=== PATIENT | male | born 1965 | race African-American/Black ===

== ENCOUNTER 2020-01-27 13:36 | Inpatient (IN) | payer BC ==
[~2020-01-27] VITALS: Ht 177.8 cm; Wt 94.8 kg
--- NOTE | 2020-01-27 14:10 | NUR ---
PLANT DIRECTOR NOTES RECEIVED PATIENT DIRECT ADMIT FROM [place] [facility] [employer]. PATIENT TRANSFERRED TO BED. ORIENTED PATIENT TO ROOM, UNIT AND CALL LIGHT. ON O2 AT 3L/MIN VIA NC PHOEBE WELL WITHOUT SOB NOTED. ALERT AND ORIENTED X4/ ON TELE MONITORING SR: 6 LFA SL # 18 INTACT AND PATENT. DENIES ANY C/O PAIN NOR DISCOMFORT AT THIS TIME. BED IN LOWEST POSITION, LOCKED. BED ALARM ON. CALL LIGHT WITHIN REACH. ABLE TO VERBALIZE NEEDS. Addendum: 01/27/20 at 1717 by JANETH VIZCARRA RN DISREGARD CHARTING. INCOMPLETE CHARTING.
--- NOTE | 2020-01-27 14:10 | NUR ---
CONVERTIBLE SOFA BEDSPRING TESTER NOTES RECEIVED PATIENT DIRECT ADMIT FROM [place] [facility]. PATIENT TRANSFERRED TO BED. ORIENTED PATIENT TO ROOM, UNIT AND CALL LIGHT. ON O2 AT 3L/MIN VIA NC PHOEBE WELL WITHOUT SOB NOTED. ALERT AND ORIENTED X4. ON TELE MONITORING SR: 65. LEFT AC SL # 22 INTACT AND PATENT. BED IN LOWEST POSITION, LOCKED. BED ALARM ON. CALL LIGHT WITHIN REACH. ABLE TO VERBALIZE NEEDS.
[2020-01-27 14:22] VITALS: BP 132/74
[2020-01-27] MEDS ORDERED: MAG HYDROX/AL HYDROX/SIMETH 30 ML UDC PO PRN (15:00)
[2020-01-27] MEDS ORDERED: Z GUARD REMEDY 2 OZ OINT TP PRN (15:00)
[2020-01-27] MEDS ORDERED: ONDANSETRON HCL/PF 4 MG/2 ML VIAL IVP PRN (15:00)
[2020-01-27] MEDS ORDERED: MAGNESIUM HYDROXIDE 30 ML UDC PO PRN (15:00)
[2020-01-27] MEDS ORDERED: ACETAMINOPHEN 325 MG TABLET PO PRN (15:00)
[2020-01-27] MEDS ORDERED: ZOLPIDEM TARTRATE 5 MG TABLET PO PRN (15:00)
[2020-01-27] MEDS: MORPHINE SULFATE INJ 2 MG/ML DISP.SYRIN IV PRN ×2 (15:08→20:59)
[2020-01-27] MEDS: HYDROCODONE/APAP 5/325MG TABLET PO PRN (18:43)
--- NOTE | 2020-01-27 19:34 | NUR ---
AIR ANALYSIS ENGINEERING TECHNICIAN NOTES PATIENT RESTING COMFORTABLY IN BED. EDUCATED PATIENT TO INFORM NURSE WHEN IN PAIN SO THAT PAIN MED CAN BE GIVEN ACCORDINGLY. REMAIN ON O2 AT 3L/MIN VIA NC PHOEBE WELL WITHOUT S/S OF RESPIRATORY DISTRESS. PER PATIENT, PAIN ON RIGHT SIDE OF CHEST AND TO ABDOMINAL AREA HURTS WHEN HE MOVES DOWNWARDS AND WHEN HE GETS SOB. LEFT AC SL # 22 INTACT AND PATENT. BED IN LOWEST POSITION, LOCKED. BED ALARM ON. CALL LIGHT WITHIN REACH. ABLE TO VERBALIZE NEEDS. IN NO APPARENT DISTRESS.
--- NOTE | 2020-01-27 19:35 | NUR ---
WIND TECHNICIAN OPENING NOTES PATIENT SLEEPING, AWAKENS TO NAME. A/OX4. ON 2L NC; PATIENT DENIES SOB AT THIS TIME; BREATHING IS EVEN AND UNLABORED. PATIENT C/O UPPER RIGHT SIDE PAIN; PER DAY SHIFT RN PRN NORCO 5MG GIVEN AT 1843. TELE MONITOR READING NSR, HEART RATE 73. IV PRESENT ON LEFT AC, SIZE 22, INTACT & PATENT, HEP LOCKED. SAFETY MEASURES IN PLACE AND PATIENT'S NEEDS MET. BED LOCKED, SIDE RAILS X3, HOB ELEVATED, CALL LIGHT WITHIN REACH. WILL CONTINUE TO MONITOR.
[2020-01-27 20:00] VITALS: BP 111/79
[2020-01-27] MEDS: ENOXAPARIN SODIUM 100 MG/ML DISP.SYRIN SQ SCH (20:53)
[2020-01-28] VITALS (7 sets, daily range): BP systolic 115–140; BP diastolic 73–88
[2020-01-28 06:26] LABS: BASOPHILS % (AUTO) 0.3 % (0.0-2.0); EOSINOPHILS % (AUTO) 1.7 % (0.0-6.0); HEMATOCRIT 44 % (39-51); HEMOGLOBIN 14.4 g/dL (13.5-17.5); LYMPHOCYTES # (AUTO) 1.2 /CMM (0.8-4.8); LYMPHOCYTES % (AUTO) 20.9 % (20.0-44.0); MEAN CORPUSCULAR HGB CONC 33 g/dl (31.0-36.0); MEAN CORPUSCULAR VOLUME 94 fL (80-96); MONOCYTES # (AUTO) 0.6 /CMM (0.1-1.30); NEUTROPHILS # (AUTO) 3.7 /CMM (1.8-8.9); NEUTROPHILS % (AUTO) 66.1 % (43.0-81.0); PLATELET COUNT (AUTO) 145 /CMM (150-450); RED BLOOD CELL COUNT(AUTO) 4.69 MIL/uL (4.5-6.0); WHITE BLOOD COUNT (AUTO) 5.6 K/uL (4.3-11.0)
[2020-01-28 06:33] LABS: CALCIUM, SERUM 8.8 mg/dL (8.5-10.1); CREATININE 0.7 mg/dL (0.6-1.3); MAGNESIUM 2.4 mg/dL (1.8-2.4); PHOSPHORUS 3.2 mg/dL (2.5-4.9); POTASSIUM 3.7 mmol/L (3.5-5.1)
[2020-01-28 06:42] LABS: THYROID STIMULATING HORMONE 1.239 uIU/mL (0.358-3.74)
--- NOTE | 2020-01-28 07:30 | NUR ---
MILLED RUBBER TENDER OPENING NOTES RECEIVED PT ON BED, AAOX4, RESPONSIVE TO ALL STIMULI. RESPIRATION EVEN AND NON LABORED WITH NO ACUTE RESPIRATORY DISTRESS. ABD SOFT AND NON DISTENDED, ACTIVE BOWEL SOUNDS, ON BRP, SBA. SKIN WARM TO TOUCH AND DRY, NO REPORTED NEW OPEN SKIN BREAKDOWN. PT C/O PAIN 4/10 ON RIGHT UPPER CHEST. DENIES SOB, ON O2 AT 2LPM, PHOEBE WELL. TELE MONITOR SHOWS SR 72. IV SITE AT LEFT AC @ 22 PATENT IN FLUSHING, NO S/SX OF INFILTRATION. CALL LIGHT WITHIN REACH, BED IN LOW LOCKED POSITION, SRX2 FOR SAFETY, WILL CONTINUE TO MONITOR CARE.
[2020-01-28] MEDS: HYDROCODONE/APAP 5/325MG TABLET PO PRN (07:35)
--- NOTE | 2020-01-28 07:45 | NUR ---
RETAIL ASSISTANT STORE MANAGER CLOSING NOTES PATIENT AWAKE IN BED. A/OX4. ON 2L NC; NO S/S OF ACUTE RESPIRATORY DISTRESS; BREATHING IS EVEN AND UNLABORED. PATIENT C/O RIGHT UPPER SIDE PAIN. TELE MONITOR READING NSR. IV PRESENT ON LEFT AC, SIZE 22, INTACT & PATENT, HEP LOCKED. SAFETY MEASURES IN PLACE AND PATIENT'S NEEDS MET. BED LOCKED, SIDE RAILS X3, HOB ELEVATED, CALL LIGHT WITHIN REACH. ENDORSED TO DAY SHIFT RN PLAN OF CARE.
[2020-01-28] MEDS: ENOXAPARIN SODIUM 100 MG/ML DISP.SYRIN SQ SCH ×2 (08:42→20:16)
--- NOTE | 2020-01-28 19:05 | NUR ---
early learning teacher opening notes received patient in bed awake alert and oriented x4, able to make needs known , respirations even and unlabored with equal rise and fall of chest,tolerating 02 well via nc at this time remains comfortable, denies any discomfort ,no distress present, on tele monitoring sr 81 , iv site to left ac#22 g intact and patent, no redness,no infiltration present, safety precautions rendered, low bed and locked, oriented to call light and kept within reach, all needs attended at this time will continue to monitor and attend to needs.
--- NOTE | 2020-01-28 19:20 | NUR ---
MACHINIST INSTRUCTOR CLOSING NOTES PT AAOX4, ABLE TO MAKE NEEDS KNOWN. NO PRESENCE OF ACUTE RESPIRATORY DISTRESS, ON CONTINUOUS O2, AT 2LPM, PHOEBE WELL, DENIES SOB. PT DENIES PAIN. SKIN REMAIN INTACT. IV SITE PATENT IN FLUSHING AT LAC #22 H/L. TELE MONITOR SHOWS SR 78. ALL CONCERNS ATTENDED. NO DC PLANNING. CALL LIGHT WITHIN REACH. ENDORSED CARE TO NEXT SHIFT.
[2020-01-29 00:20] VITALS: BP 125/78
[2020-01-29 01:21] VITALS: BP 125/78
[2020-01-29 04:00] VITALS: BP 130/70
--- NOTE | 2020-01-29 06:33 | NUR ---
burner technician closing notes patient in bed sleeping, alert and oriented x4, able to make needs known , respirations even and unlabored with equal rise and fall of chest,tolerating 02 well via nc at this time remains comfortable, denies any discomfort ,no distress present, on tele monitoring sr 67 , iv site to left ac#22 g intact and patent, no redness,no infiltration present, safety precautions rendered, low bed and locked, call light kept within reach, all needs attended at this time will continue to monitor and attend to needs and endorse to next shift.
[2020-01-29 07:33] LABS: BASOPHILS % (AUTO) 0.6 % (0.0-2.0); EOSINOPHILS % (AUTO) 2.1 % (0.0-6.0); HEMATOCRIT 46 % (39-51); HEMOGLOBIN 15.1 g/dL (13.5-17.5); LYMPHOCYTES # (AUTO) 1.1 /CMM (0.8-4.8); LYMPHOCYTES % (AUTO) 24.9 % (20.0-44.0); MEAN CORPUSCULAR HGB CONC 33 g/dl (31.0-36.0); MEAN CORPUSCULAR VOLUME 93 fL (80-96); MONOCYTES # (AUTO) 0.5 /CMM (0.1-1.30); MONOCYTES % (AUTO) 11.3 % (2.0-12.0); NEUTROPHILS # (AUTO) 2.8 /CMM (1.8-8.9); NEUTROPHILS % (AUTO) 61.1 % (43.0-81.0); PLATELET COUNT (AUTO) 177 /CMM (150-450); RED BLOOD CELL COUNT(AUTO) 4.94 MIL/uL (4.5-6.0); WHITE BLOOD COUNT (AUTO) 4.6 K/uL (4.3-11.0)
--- NOTE | 2020-01-29 07:55 | NUR ---
RN OPENING NOTE Patient is resting in bed, A/O x4, showing no signs of acute distress or SOB, breathing is even and unlabored, saturating 97% on 2L NC. Patient denies pain or discomfort at this time. IV line in the LAC#22g is clean and intact flushing well. Bed is in lowest position, side rails x3 in upright position, call light is within reach, fall safety and aspiration precautions enforced. Will continue with plan of care.
[2020-01-29 08:00] VITALS: BP 141/79
[2020-01-29 08:12] LABS: THYROID STIMULATING HORMONE 2.039 uIU/mL (0.358-3.74)
[2020-01-29 08:35] LABS: ALANINE AMINOTRANSFERASE 61 U/L (12-78); ALKALINE PHOSPHATASE 48 U/L (46-116); ASPARTATE AMINOTRANSFERASE 28 U/L (15-37); BILIRUBIN,TOTAL 0.4 mg/dL (0.2-1.0); CALCIUM, SERUM 9.2 mg/dL (8.5-10.1); CARBON DIOXIDE 27 mmol/L (21-32); CHLORIDE 102 mmol/L (98-107); CREATININE 0.9 mg/dL (0.6-1.3); GLUCOSE 96 mg/dL (74-106); MAGNESIUM 2.5 mg/dL (1.8-2.4); PHOSPHORUS 3.5 mg/dL (2.5-4.9); POTASSIUM 3.7 mmol/L (3.5-5.1); SODIUM SERUM 140 mmol/L (136-145); TOTAL PROTEIN, SERUM 7.5 g/dL (6.4-8.2); UREA NITROGEN, BLOOD 9 mg/dL (7-18)
[2020-01-29] MEDS: ENOXAPARIN SODIUM 100 MG/ML DISP.SYRIN SQ SCH ×2 (09:11→20:50)
[2020-01-29 16:00] VITALS: BP 110/73
--- NOTE | 2020-01-29 18:45 | NUR ---
RN CLOSING NOTE Patient is resting in bed, A/O x4, showing no signs of acute distress or SOB, breathing is even and unlabored, saturating 97% on 2L NC. Patient denies pain or discomfort at this time. Patient is independent with self-care. IV line in the LAC#22g is clean and intact flushing well. All patient needs met, all due medications given, patient kept clean and dry throughout shift. Bed is in lowest position, side rails x3 in upright position, call light is within reach, fall safety and aspiration precautions enforced. Will endorse to evening or night nurse supervisor for CAIT.
--- NOTE | 2020-01-29 19:10 | NUR ---
RN OPENING NOTE RECEIVED PATIENT IN BED RESTING ALERT ORIENTED X4 ABLE TO MAKE NEEDS KNOWN,ON MED SURG MONITORING,ON 2L OXYGEN VIA NASAL CANNULA,O2:96% IV SITE IS ON LEFT AC INTACT, PATENT, FLUSHED,CONTINENT BOWEL/BLADDER AMBULATORY WITH ASSIST,IMPLEMENT SAFETY MEASURE,BED LOCKED IN LOW POSITION,CALL LIGHT WITHIN REACH,CONTINUE TO MONITOR.
[2020-01-29 20:00] VITALS: BP 121/81
--- NOTE | 2020-01-29 23:30 | NUR ---
RN NOTE PATIENT REMAINS ALERT ORIENTED X4 VERBALLY RESPONSIVE NO SOB NOT ACUTE DISTRESS NOTED ENDORSE MOOK MATTHEWS FOR CONTINUATION OF CARE
--- NOTE | 2020-01-29 23:30 | NUR ---
Patient in bed sleeping comfortably. Patient breathing well on 2L Oxygen via nasal canula. No SOB or acute respiratory distress noted. Noted IV access on left AC, 22 gauge, dressing dry and intact, no redness, or infiltration. Safety precaution is in place, bed is in the lowest level, brakes are on, side rails x2 are up, and call light is within reach. Will continue to monitor.
--- NOTE | 2020-01-29 23:30 | NUR ---
Received report from BYRON Hogan for continuity of care.
[2020-01-30 07:05] LABS: BASOPHILS % (AUTO) 0.3 % (0.0-2.0); EOSINOPHILS % (AUTO) 3.5 % (0.0-6.0); HEMATOCRIT 46 % (39-51); HEMOGLOBIN 15.3 g/dL (13.5-17.5); LYMPHOCYTES # (AUTO) 1.4 /CMM (0.8-4.8); LYMPHOCYTES % (AUTO) 34.5 % (20.0-44.0); MEAN CORPUSCULAR HGB CONC 34 g/dl (31.0-36.0); MEAN CORPUSCULAR VOLUME 92 fL (80-96); MONOCYTES # (AUTO) 0.5 /CMM (0.1-1.30); MONOCYTES % (AUTO) 11.2 % (2.0-12.0); NEUTROPHILS # (AUTO) 2.1 /CMM (1.8-8.9); NEUTROPHILS % (AUTO) 50.5 % (43.0-81.0); PLATELET COUNT (AUTO) 195 /CMM (150-450); RED BLOOD CELL COUNT(AUTO) 4.95 MIL/uL (4.5-6.0); WHITE BLOOD COUNT (AUTO) 4.1 K/uL (4.3-11.0)
--- NOTE | 2020-01-30 07:15 | NUR ---
Patient in bed sleeping comfortably. Patient breathing well. No SOB or acute respiratory distress noted. Safety precaution maintained, bed in lowest level, side rails x2 are up, and call light is within reach. Will endorse to next shift.
--- NOTE | 2020-01-30 07:39 | NUR ---
MS/RN OPENING NOTE RECEIVED PATIENT FROM UTILITY MECHANIC. PATIENT LAYING IN BED, NO ACUTE DISTRESS NOTED. PATIENT ON 2L OF OXYGEN VIA NASSAL CANNULA. NO SOB OF NOTED. BED LOCKED AND IN LOWEST POSITION, CALL LIGHT LIGHT WITHIN REACH. WILL CONTINUE TO MONITOR AND ENSURE SAFETY.
[2020-01-30 07:53] LABS: CALCIUM, SERUM 9.2 mg/dL (8.5-10.1); CREATININE 0.8 mg/dL (0.6-1.3); MAGNESIUM 2.5 mg/dL (1.8-2.4); PHOSPHORUS 3.5 mg/dL (2.5-4.9); POTASSIUM 3.6 mmol/L (3.5-5.1)
[2020-01-30 08:07] VITALS: BP 115/75
[2020-01-30] MEDS ORDERED: APIX5TAB PO (08:44)
--- NOTE | 2020-01-30 08:50 | NUR ---
MS/RN S/B STEFANIA SANTIAGO PATIENT TO BE DISCHARGED TO HOME TODAY WITH PRESCRIPTION FOR ELIQUIS
[2020-01-30] MEDS ORDERED: APIXABAN 5 MG TABLET PO SCH (09:00)
--- NOTE | 2020-01-30 09:52 | NUR ---
MS/FLUE LINING DIPPER DISCHARGE PAPER WORK COMPLETED FLU VACCINATION ORDERED FROM PHARMACY. WILL ADMINISTER PRIOR TO DISCHARGE.
[2020-01-30] MEDS ORDERED: INFLUENZA VACCINE 2020-21 0.5 ML DISP.SYRIN IM ONE (10:00)
--- NOTE | 2020-01-30 11:20 | NUR ---
MS/ELECTRICAL FITTER PATIENT WAS DISCHARGED TO HOME IN STABLE CONDITION. IV HEPLOCK AND NAME BAND REMOVED. ALL PERSONAL BELONGINGS ACCOUNTED FOR AND SIGNED OFF IN BELONGINGS LIST. EDUCATED PATIENT ON ELIQUIS INCLUDING SIDE EFFECTS IE BLOOD IN URINE. INSTRUCTED TO NOTIFY PCP IF ANY SIGNS OF BLEEDING OR COMPLICATIONS OF MEDICATION, IF EXPERIENCING LARGE AMOUNTS OF BLEEDING TO GO TO THE NEAREST ER. EXIT CARE SIGNED BY PATIENT. COPY MADE AND PLACED IN CHART. PROVIDED WITH COPY OF EXIT CARE AND MEDICAL RECORD. INFORMED TO FOLLOW WITH PCP IN 1 WEEK AND RECOMMENDATION OF FOLLOWING UP WITH CT PULMONARY ANGIOGRAM IN 6 MO. PATIENT STATED UNDERSTANDING. ESCORTED TO MAIN LOBBY BY RN. DAUGHTER WAITING FOR TRANSPORT.
[2020-01-31 08:13] LABS: IMMUNOGLOBULIN A, SERUM 285 mg/dL (90-386); IMMUNOGLOBULIN G, SERUM 737 mg/dL (603-1613); IMMUNOGLOBULIN M, SERUM 80 mg/dL (20-172)
[2020-01-31 14:07] LABS: *SPE A/G RATIO 0.9 (0.7-1.7); *SPE ALPHA-1-GLOBULIN 0.3 g/dL (0.0-0.4); *SPE BETA GLOBULIN 1.2 g/dL (0.7-1.3); *SPE GLOBULIN, TOTAL 3.3 g/dL (2.2-3.9); *SPE M-SPIKE Not Observed g/dL (Not Observed); *SPEGAMMA GLOBULIN 0.7 g/dL (0.4-1.8)
[2020-02-01 11:16] LABS: *CARD ANTI-CARDIOLIPIN AB IgA <9 APL U/mL (0-11); *CARD ANTI-CARDIOLIPIN AB IgG <9 GPL U/mL (0-14); *CARD ANTI-CARDIOLIPIN AB IgM <9 MPL U/mL (0-12)
[2020-02-02 12:05] LABS: *FACTOR II, DNA ANALYSIS Negative (.)
[2020-02-02 16:09] LABS: *ANA ANTI-CENTROMERE B AB <0.2 AI (0.0-0.9); *ANA ANTI-DNA(DS) AB, QN <1 IU/mL (0-9); *ANA ANTI-JO-1 <0.2 AI (0.0-0.9); *ANA ANTICHROMATIN ANTIBODY <0.2 AI (0.0-0.9); *ANA RNP ANTIBODIES <0.2 AI (0.0-0.9); *ANA SJOGREN'S ANTI-SS-A <0.2 AI (0.0-0.9); *ANA SJOGREN'S ANTI-SS-B <0.2 AI (0.0-0.9); *ANAANTI-SCLERODERMA-70 AB <0.2 AI (0.0-0.9); *ANASMITH AB <0.2 AI (0.0-0.9)
[2020-02-08 08:11] LABS: *ANTITHROMBIN III AG 71 % (72-124); *THROMBIN TIME 13.4 sec (0.0-23.0); *dRVVT 52.2 sec (0.0-47.0)
== END 2020-01-30 11:15 | disposition home or self-care (01) | DRG 176 ==
LOC: TELE 13:36 → MED 01-29 10:05
PROVIDERS: ADMIT Nurse Practitioner Acute Care; ATTEND Nurse Practitioner Acute Care
DX: I26.94 Multiple subsegmental thrombotic pulmonary emboli without acute cor pulmonale (principal); D68.69 Other thrombophilia; M54.12 Radiculopathy, cervical region; F12.90 Cannabis use, unspecified, uncomplicated; Z87.891 Personal history of nicotine dependence; D69.6 Thrombocytopenia, unspecified; M54.5 Low back pain; R20.2 Paresthesia of skin
CPT/HCPCS: 36415; 80048-TC; 80053-TC; 80061-TC; 81240; 81241; 82784; 83090; 83735-TC; 84100-TC; 84155; 84165; 84443-TC; 84484-TC; 85025-TC; 85300; 85301; 85613; 85652-TC; 85670; 85705; 85732; 86140-TC; 86147; 86225; 86235; 86334; 86431-TC; 87081-TC; 93307-TC; 93970-TC; 97116-TC; 97530-TC; G0378; J1650; J2270; Q2036